=== PATIENT | female | born 1995 | race Asian ===

== ENCOUNTER 2017-03-16 15:45 | Emergency (ER) | payer SELFPAY ==
[~2017-03-16] VITALS: Ht 162.6 cm; Wt 85.0 kg
[2017-03-16 17:07] LABS: HEMATOCRIT 40.2 % (34.6-47.8); HEMOGLOBIN 13.7 g/dL (11.7-16.4); WHITE BLOOD COUNT 7.4 x10^3/uL (3.4-10)
[2017-03-16 17:17] LABS: ASPARTATE AMINO TRANSFERASE 14 U/L (15-37); BLOOD UREA NITROGEN 8 mg/dL (7-18)
[2017-03-16 18:03] VITALS: BP 121/75
== END 2017-03-16 18:21 | disposition home or self-care (01) ==
LOC: ED 18:18
DX: O23.11 Infections of bladder in pregnancy, first trimester (principal); Z3A.01 Less than 8 weeks gestation of pregnancy
CPT/HCPCS: 36415; 76830; 80053; 81001; 84702; 85025; 87077; 87086; 87186; 99285

== ENCOUNTER 2017-03-18 13:37 | Emergency (ER) | payer SELFPAY ==
[~2017-03-18] VITALS: Ht 162.6 cm; Wt 85.2 kg
[2017-03-18 13:45] VITALS: BP 137/66
== END 2017-03-18 15:54 | disposition home or self-care (01) ==
LOC: ED 15:48
DX: Z32.01 Encounter for pregnancy test, result positive (principal)
CPT/HCPCS: 36415; 81001; 84702; 87077; 87086; 87186; 99284

== ENCOUNTER 2017-07-23 18:24 | Emergency (ER) | payer OTHER ==
[~2017-07-23] VITALS: Ht 160 cm; Wt 83.8 kg
[2017-07-23] MEDS ORDERED: ONDANSETRON 2MG/ML, 2ML ONE (20:08)
[2017-07-23] MEDS ORDERED: ONDANSETRON 2MG/ML, 2ML IVPush ONE (20:30)
[2017-07-23] MEDS ORDERED: SODIUM CHLORIDE 0.9% 1,000ML IVBOLUS ONE (20:30)
[2017-07-23] MEDS ORDERED: SODIUM CHLORIDE FLUSH 10ML SYR IVF ONE (20:30)
[2017-07-23 20:41] LABS: ALBUMIN 3.6 g/dL (3.4-5.0); ANION GAP 10 mmol/L (5-15); CALCIUM 8.8 mg/dL (8.5-10.1); CHLORIDE 104 mmol/L (98-107)
[2017-07-23 20:42] LABS: CREATININE 0.73 mg/dL (0.55-1.02)
[2017-07-23 20:45] LABS: BASOPHILS # (AUTO) 0.02 x10^3/uL (0-0.1); BASOPHILS % (AUTO) 0 % (0-1); EOSINOPHILS # (AUTO) 0.14 x10^3/uL (0-0.4); EOSINOPHILS % (AUTO) 2 % (1-7); LYMPHOCYTES # (AUTO) 1.91 x10^3/uL (1-3.4); LYMPHOCYTES % (AUTO) 20 % (22-44); MD NO; MEAN CORPUSCULAR HEMOGLOBIN 27.6 pg (27.0-34.8); MEAN CORPUSCULAR HGB CONC 33.8 g/dL (32.4-35.8); MEAN CORPUSCULAR VOLUME 81.7 fL (80-100); MEAN PLATELET VOLUME 8.8 fL (7.4-10.4); MONOCYTES # (AUTO) 0.53 x10^3/uL (0.2-0.8); MONOCYTES % (AUTO) 6 % (2-9); NEUTROPHILS % (AUTO) 72 % (42-75); PLATELET COUNT 278 x10^3/uL (130-400); RED BLOOD COUNT 4.62 x10^6/uL (3.82-5.3); RED CELL DISTRIBUTION WIDTH 13.8 % (9.6-15.2)
[2017-07-23] MEDS ORDERED: MAALOX/HYOSCYAMINE/LIDOCAINE 45 ML BTL PO ONE ×2 (21:00→21:30)
[2017-07-23 21:02] LABS: MICROSCOPIC AUTO
[2017-07-23] MEDS ORDERED: MAALOX/HYOSCYAMINE/LIDOCAINE 45 ML BTL ONE (21:02)
[2017-07-23 21:05] LABS: CULTURE INDICATED? YES
[2017-07-23] MEDS ORDERED: CEPHALEXIN 500 MG CAPSULE ONE (21:17)
[2017-07-23 21:20] VITALS: BP 106/64
[2017-07-23] MEDS ORDERED: CEPHALEXIN 500 MG CAPSULE PO ONE (21:30)
== END 2017-07-23 21:35 | disposition home or self-care (01) ==
LOC: ED 21:29
DX: O26.891 Other specified pregnancy related conditions, first trimester (principal); O23.41 Unspecified infection of urinary tract in pregnancy, first trimester; O21.9 Vomiting of pregnancy, unspecified; R11.0 Nausea; Z3A.08 8 weeks gestation of pregnancy
CPT/HCPCS: 36415; 80048; 81001; 82040; 85025; 87077; 87086; 87186; 96361; 96374; 99284; J2405; J7030

== ENCOUNTER 2017-09-30 09:45 | Emergency (ER) | payer MEDICAID, OTHER ==
[~2017-09-30] VITALS: Ht 162.6 cm; Wt 80.0 kg
[2017-09-30 10:57] VITALS: BP 115/55
[2017-09-30] MEDS ORDERED: PHENAZOPYRIDINE 200 MG TABLET PO ONE (11:00)
[2017-09-30] MEDS ORDERED: SODIUM CHLORIDE FLUSH 10ML SYR IVF ONE (11:00)
[2017-09-30] MEDS ORDERED: SODIUM CHLORIDE 0.9% 1,000ML IVBOLUS ONE (11:00)
[2017-09-30] MEDS ORDERED: PHENAZOPYRIDINE 200 MG TABLET ONE (11:08)
[2017-09-30 11:13] LABS: MICROSCOPIC INDICATED
[2017-09-30 11:15] LABS: BASOPHILS # (AUTO) 0.03 x10^3/uL (0-0.1); BASOPHILS % (AUTO) 0 % (0-1); EOSINOPHILS # (AUTO) 0.21 x10^3/uL (0-0.4); EOSINOPHILS % (AUTO) 2 % (1-7); LYMPHOCYTES # (AUTO) 1.25 x10^3/uL (1-3.4); LYMPHOCYTES % (AUTO) 13 % (22-44); MD NO; MEAN CORPUSCULAR HEMOGLOBIN 29.8 pg (27.0-34.8); MEAN CORPUSCULAR HGB CONC 34.9 g/dL (32.4-35.8); MEAN CORPUSCULAR VOLUME 85.4 fL (80-100); MEAN PLATELET VOLUME 9.1 fL (7.4-10.4); MONOCYTES # (AUTO) 0.43 x10^3/uL (0.2-0.8); MONOCYTES % (AUTO) 5 % (2-9); NEUTROPHILS % (AUTO) 80 % (42-75); PLATELET COUNT 224 x10^3/uL (130-400); RED BLOOD COUNT 3.72 x10^6/uL (3.82-5.3); RED CELL DISTRIBUTION WIDTH 14.6 % (9.6-15.2)
[2017-09-30 11:26] LABS: ALANINE AMINOTRANSFERASE 13 U/L (12-78); ANION GAP 10 mmol/L (5-15); CALCIUM 8.8 mg/dL (8.5-10.1); CHLORIDE 106 mmol/L (98-107); CREATININE 0.67 mg/dL (0.55-1.02)
[2017-09-30 11:28] LABS: ALKALINE PHOSPHATASE 49 U/L (45-117); BILIRUBIN,TOTAL 0.5 mg/dL (0.2-1.0); TOTAL PROTEIN 7.8 g/dL (6.4-8.2)
[2017-09-30 11:33] LABS: CULTURE INDICATED? YES
== END 2017-09-30 12:42 | disposition home or self-care (01) ==
LOC: ED 12:22
DX: O26.892 Other specified pregnancy related conditions, second trimester (principal); R10.31 Right lower quadrant pain; O23.12 Infections of bladder in pregnancy, second trimester; O99.512 Diseases of the respiratory system complicating pregnancy, second trimester; J00 Acute nasopharyngitis [common cold]; B97.89 Other viral agents as the cause of diseases classified elsewhere; Z3A.23 23 weeks gestation of pregnancy
CPT/HCPCS: 36415; 71045; 80053; 81001; 83690; 85025; 87086; 96360; 99285; J7030

== ENCOUNTER 2017-12-04 22:09 | Outpatient (CLI) | payer MEDICAID ==
[~2017-12-04] VITALS: Ht 162.6 cm; Wt 90.0 kg
[2017-12-04 22:44] LABS: AMPHETAMINE SCREEN, URINE Negative (Negative); BARBITURATE SCREEN, URINE Negative (Negative); BENZODIAZEPINE SCREEN, URINE Negative (Negative); CANNABINOID SCREEN, URINE Negative (Negative); COCAINE SCREEN, URINE Negative (Negative); METHADONE SCREEN, URINE Negative (Negative); OPIATE SCREEN, URINE Negative (Negative)
[2017-12-04 22:50] VITALS: BP 124/74
[2017-12-04 22:53] LABS: MICROSCOPIC INDICATED
[2017-12-04 23:02] LABS: CLUE CELLS NONE SEEN (NONE SEEN); WET PREP WBCS FEW (FEW)
== END 2017-12-04 23:43 | disposition home or self-care (01) ==
LOC: LDOP 22:09
PROVIDERS: ATTEND Student in an Organized Health Care Education/Training Program
DX: O62.9 Abnormality of forces of labor, unspecified (principal); Z3A.29 29 weeks gestation of pregnancy
CPT/HCPCS: 59025; 80307; 81001; 87086; 87210; 87491; 87591; 87808; 99211; G0463